=== PATIENT | male | born 1950 | race Caucasian/White ===

== ENCOUNTER 2018-06-24 11:45 | Day surgery (SDC) | payer MEDICARE, OTHER, SELFPAY ==
[2018-06-24] MEDS: PROPARACAINE 0.5% OPHTH SOL 2 DROPS EYE-OP (12:32)
[2018-06-24] MEDS: CATARACT EYE COMPOUND (10 DROPS/SYRINGE) 3 DROPS EYE-OP (12:37)
[2018-06-24 12:39] VITALS: BMI 27.0
[2018-06-24 12:46] VITALS: BP 124/71; PULSE 61; RESP 12; TEMP 36.4; O2SAT 97
--- NOTE | 2018-06-24 13:08 | PM.PREOP ---
Pre-operative Note Interval Note History & Physical reviewed/Exam performed by Physician: No Changes to H&P: No
--- NOTE | 2018-06-24 13:08 | PM.OP.1 ---
Operative Date/Time/Diagnoses Pre-op diagnosis: Nuclear cataract right eye Procedure & Clinicians Procedure: Cataract Surgery Same procedure as scheduled: Yes Surgeon: Davey Espinoza Anesthesia Type: MAC +/- and Sedation Operative Notes Procedure in detail: Patient brought to the operating suite. Tetracaine drops placed in the right eye. Marking instrument was used to amrik the vertical and horizontal meridian. Patient was prepped and draped in sterile manner. Wire lid speculum was placed in the eye. Marking instrument was used to amrik the 50 degree meridian Betadine drops were placed on the eye. This was irrigated. Lidocaine jelly was placed on the eye. A paracentesis port was created with a side-port blade. 0.1 mL 1% preservative free lidocaine was injected into the anterior chamber. The anterior chamber was deepened with viscoelastic. 2.6 mm keratome was used to create a temporal clear corneal incision. Cystotome and Utrata forceps were used to create continuous tear capsulorrhexis. Balanced salt solution was used to hydro dissect the nucleus. The phacoemulsification handpiece was inserted and the nucleus was removed using the stop and chop technique. The irrigation aspiration handpiece was inserted and the remaining cortex was removed. Anterior chamber was deepened with viscoelastic. An Llanos [id number] intraocular lens with a power of 21.0 was injected into the capsular bag. Irrigation aspiration handpiece was inserted and the remaining viscoelastic was removed. The lens was rotated to the 50 degree meridian. Incision was hydrated with balanced salt solution and found to be leak free with pressure with Weck-Dona sponges. 0.1 mL Vigamox injected anterior chamber. 0.3 mL Kenalog 10 mg was injected subconjunctivally. Lid speculum was removed. The patient left the operating room in excellent condition. Complications: none Condition: stable Disposition: same day surgery
[2018-06-24] MEDS: MOXIFLOXACIN OPHTH DROPS 3 ML BOTTLE 2 DROPS INJ (13:22)
[2018-06-24] MEDS: PHENYLEPHRINE/LIDOCAINE VIAL (OR) 0.2 ML EYE-OP (13:22)
[2018-06-24] MEDS: TETRACAINE 0.5% OPHTH DROPS 4 ML 2 DROPS EYE-OP (13:23)
[2018-06-24] MEDS: TRIAMCINOLONE 50 MG/5 ML VIAL INJ (13:23)
[2018-06-24] MEDS: CHONDROIDTIN/SOD HYALURONATE 1.05 ML SYRINGE INTRAOCULA (13:23)
[2018-06-24] MEDS: LIDOCAINE JELLY 2% 5 ML 1 APPLIC TOP (13:23)
[2018-06-24] MEDS: BALANCED SALT IRRIG SOLN NO.2 500 ML, EPINEPHrine 1 MG IRR (13:24)
[2018-06-24 13:30] VITALS: BP 122/72; PULSE 65; RESP 12; TEMP 36.4; O2SAT 99
== END 2018-06-24 13:44 | disposition home or self-care (01) ==
LOC: OR 11:48
PROVIDERS: Family Provider Family Medicine; PCP Family Medicine; Visit Provider Ophthalmology
DX: H25.11 Age-related nuclear cataract, right eye (principal); I10 Essential (primary) hypertension; E78.5 Hyperlipidemia, unspecified
CPT/HCPCS: J0171; J2250; J3010; J3301; V2787

== ENCOUNTER 2018-07-08 07:49 | Day surgery (SDC) | payer MEDICARE, OTHER, SELFPAY ==
[2018-07-08 08:08] VITALS: BP 128/77; PULSE 74; RESP 16; TEMP 36.7; O2SAT 96; BMI 28.0
[2018-07-08] MEDS: PROPARACAINE 0.5% OPHTH SOL 2 DROPS EYE-OP (08:22)
[2018-07-08] MEDS: CATARACT EYE COMPOUND (10 DROPS/SYRINGE) 3 DROPS EYE-OP (08:25)
--- NOTE | 2018-07-08 09:35 | PM.PREOP ---
Pre-operative Note Interval Note History & Physical reviewed/Exam performed by Physician: No Changes to H&P: No
--- NOTE | 2018-07-08 09:36 | PM.OP.1 ---
Operative Date/Time/Diagnoses Pre-op diagnosis: Nuclear Cataract Left eye Post-op diagnosis: same Procedure & Clinicians Surgeon: Davey Espinoza Anesthesia Type: MAC +/- and Sedation Operative Notes Procedure in detail: Patient brought to the operating suite. Tetracaine drops placed in the left eye. Marking instrument was used to amrik the vertical and horizontal meridian. Patient was prepped and draped in sterile manner. Wire lid speculum was placed in the eye. Marking instrument was used to amrik the 120 degree meridian. Betadine drops were placed on the eye. This was irrigated. Lidocaine jelly was placed on the eye. A paracentesis port was created with a side-port blade. 0.1 mL 1% preservative free lidocaine was injected into the anterior chamber. The anterior chamber was deepened with viscoelastic. 2.6 mm keratome was used to create a temporal clear corneal incision. Cystotome and Utrata forceps were used to create continuous tear capsulorrhexis. Balanced salt solution was used to hydro dissect the nucleus. The phacoemulsification handpiece was inserted and the nucleus was removed using the stop and chop technique. The irrigation aspiration handpiece was inserted and the remaining cortex was removed. Anterior chamber was deepened with viscoelastic. An Llanos [id number] intraocular lens with a power of 21.5 was injected into the capsular bag. Irrigation aspiration handpiece was inserted and the remaining viscoelastic was removed. The lens was rotated to the 120 degree meridian. Incision was hydrated with balanced salt solution and found to be leak free with pressure with Weck-Dona sponges. 0.1 mL Vigamox injected anterior chamber. 0.3 mL Kenalog 10 mg was injected subconjunctivally. Lid speculum was removed. The patient left the operating room in excellent condition. Complications: none Condition: stable Disposition: same day surgery
--- NOTE | 2018-07-08 09:37 | SUR.OPER ---
Supine on eye stretcher, head on extension cradle secured with tape. Arms tucked at sides with blanket. Pillow under knees.
[2018-07-08] MEDS: PHENYLEPHRINE/LIDOCAINE VIAL (OR) 0.2 ML EYE-OP (09:47)
[2018-07-08] MEDS: CHONDROIDTIN/SOD HYALURONATE 1.05 ML SYRINGE INTRAOCULA (09:48)
[2018-07-08] MEDS: MOXIFLOXACIN OPHTH DROPS 3 ML BOTTLE 2 DROPS INJ (09:48)
[2018-07-08] MEDS: TRIAMCINOLONE 50 MG/5 ML VIAL INJ (09:48)
[2018-07-08] MEDS: LIDOCAINE JELLY 2% 5 ML 1 APPLIC TOP (09:49)
[2018-07-08] MEDS: BALANCED SALT IRRIG SOLN NO.2 500 ML, EPINEPHrine 1 MG IRR (09:49)
[2018-07-08] MEDS: TETRACAINE 0.5% OPHTH DROPS 4 ML 2 DROPS EYE-OP (09:50)
[2018-07-08 10:05] VITALS: BP 115/67; PULSE 62; RESP 18; TEMP 36.6; O2SAT 98
== END 2018-07-08 10:15 ==
LOC: OR 07:50
PROVIDERS: Family Provider Family Medicine; PCP Family Medicine; Visit Provider Ophthalmology
DX: H25.12 Age-related nuclear cataract, left eye (principal); I10 Essential (primary) hypertension; E78.5 Hyperlipidemia, unspecified
CPT/HCPCS: J0171; J2250; J3010; J3301; V2787

== ENCOUNTER → 2018-11-26 15:55 | Outpatient (CLI) | payer MEDICARE, OTHER, SELFPAY ==
--- NOTE | 2018-11-26 | DI.RAD.S_ITS ---
PROCEDURE: XR HIP W PEL IF DONE LT 2V INDICATIONS: LEFT HIP PAIN TECHNIQUE: AP pelvis with lateral view(s) of the left hip(s). COMPARISON: None. FINDINGS: Bones: Left worse than right bilateral hip joint osteoarthritis is seen with superior joint space narrowing and subchondral sclerosis. No fractures or dislocations. No evidence of avascular necrosis the femoral head. Pelvic ring appears intact. No suspicious bony lesions. Soft tissues: The visualized bowel gas pattern is normal. No suspicious soft tissue calcifications. IMPRESSION: Left worse than right bilateral hip joint osteoarthritis. Dictated by: Jaison Gutierrez M.D. on 11/26/2018 at 16:40 Approved by: Jaison Gutierrez M.D. on 11/26/2018 at 16:40
== END ==
PROVIDERS: Family Provider Family Medicine; PCP Family Medicine; Visit Provider Family Medicine
DX: M25.552 Pain in left hip (principal); M16.0 Bilateral primary osteoarthritis of hip
CPT/HCPCS: 73502

== ENCOUNTER 2019-03-14 13:23 | Emergency (ER) | payer MEDICARE, OTHER, SELFPAY ==
[2019-03-14] VITALS (13 sets, daily range): BP systolic 105–139; BP diastolic 65–81; PULSE 57–72; RESP 12–19; TEMP 37.1; O2SAT 95–100; BMI 28.3
--- NOTE | 2019-03-14 13:36 | DI.RAD.S_ITS ---
PROCEDURE: XR CHEST 1V INDICATIONS: chest pain TECHNIQUE: One view of the chest was acquired. COMPARISON: [facility], , CHEST 2 VIEW, 11/16/2008, 11:16. FINDINGS: Surgical changes and devices: Postoperative changes of the left shoulder compatible with prior left shoulder arthroplasty. Lungs and pleura: Prominent interstitial markings within the left hilar region are evident, which have developed in the interim. There is no large effusion, large area of consolidation or definite pneumothorax. Mediastinum: Mediastinal contours appear normal. Heart size is normal. Bones and chest wall: No suspicious bony lesions. Overlying soft tissues appear unremarkable. IMPRESSION: Prominent left hilar interstitial markings may represent chronic interstitial changes, atelectasis, or atypical pneumonia. Please correlate clinically. Dictated by: Mustapha Crow M.D. on 03/14/2019 at 13:04 Approved by: Mustapha Crow M.D. on 03/14/2019 at 13:05
--- NOTE | 2019-03-14 13:44 | ED_ITS ---
HPI - Chest Pain General Chief Complaint: Chest Pain Stated Complaint: chest pain Time Seen by Provider: 03/14/19 13:26 Source: patient Mode of arrival: Ambulatory Limitations: no limitations History of Present Illness HPI narrative: Patient is a 68-year-old male who presents with chest pain. He said he was cleaning the stove after boiled coffee no significant chemicals he started getting a little dizzy lightheaded and noticed some pressure in the center wrist chest. It is improving however it has not gone it is not radiating. He denies any passing out. He has no weakness he denies any nausea diaphoresis. Pain is not worse with exertion. MD complaint: chest pain Onset (ago): hour(s) (1) Duration: constant Pain location: substernal Severity: mild Quality: heaviness Pain radiation: none Relieving factors: nothing Related Data Home Medications Medication Instructions Recorded Confirmed aspirin 81 mg PO DAILY 06/24/18 07/08/18 atenolol 25 mg PO DAILY 06/24/18 07/08/18 atorvastatin [Lipitor] 10 mg PO DAILY 06/24/18 07/08/18 diclofenac sodium [Voltaren-XR] 50 mg PO BID 06/24/18 07/08/18 esomeprazole magnesium [Nexium] 40 mg PO DAILY 06/24/18 07/08/18 felodipine 5 mg PO DAILY PRN 06/24/18 07/08/18 Allergies Allergy/AdvReac Type Severity Reaction Status Date / Time Penicillins Allergy Mild Hives Verified 03/14/19 13:35 Review of Systems Review of Systems Narrative: GENERAL: Denies chills, fatigue, malaise, fever, sweats, travel HEENT: Denies sinus pain, ear pain, sore throat, difficulty swallowing, neck pain RESPIRATORY: Denies dyspnea, cough, wheezing, hemoptysis, sputum. CARDIOVASCULAR: See HPI GASTROINTESTINAL: Denies nausea, vomiting, abdominal pain, diarrhea, constipation, melena. : Denies dysuria, frequency, incontinence, hematuria, urinary retention, flank pain. MUSCULOSKELETAL: Denies weakness, joint pain, or bony pain SKIN: No rash, no erythema, no pruritus NEUROLOGIC: Denies weakness, dizziness, headache, numbness, change in speech, confusion PSYCHIATRIC: No concerning psychosocial issues. 12 point review of systems is negative except for those stated above and HPI [facility] Medical History Hyperlipidemia (Acute) Hypertension (Acute) Social History household members: spouse Smoking Status: Never smoker Social History household members: spouse Smoking Status: Never smoker Exam Initial Vital Signs Initial Vital Signs: Vital Signs Temperature 98.8 F 03/14/19 13:32 Pulse Rate 70 03/14/19 13:32 Respiratory Rate 12 03/14/19 13:32 Blood Pressure 139/81 03/14/19 13:32 Pulse Oximetry 99 03/14/19 13:32 GENERAL: Well-appearing, well-nourished and in no acute distress. HEENT: Head atraumatic,EOMI, pupils reactive, face symmetric, moist mucous mem branes CARDIOVASCULAR: Regular rate and rhythm without murmurs, rubs or gallops. RESPIRATORY: Breath sounds equal bilaterally, no wheezes rales or rhonchi. ABDOMEN: Soft, nontender. Normoactive bowel sounds all 4 quadrants. No guarding or rebound. EXTREMITIES: Normal range of motion, no clubbing or edema. Neurovascularly intact NEUROLOGICAL: Alert and oriented x4.Normal gait and speech. Cranial nerves II through XII grossly intact. SKIN: Warm, dry, no laceration, no petechiae, no rashes or lesions. Scores HEART Score Heart Score history: Slightly Suspicious Heart Score EKG: Normal Heart Score Age: 45-64 years old Heart Score risk factors: 1-2 risk factors Heart Score troponin: < or = to normal limit Heart Score Total: 2 Course Orders Ordered: ED Orders 03/14/19 13:30 Complete Blood Count AUTO DIFF Stat Comprehensive Metabolic Panel Stat Lipase Stat Partial Thromboplastin Time Stat Prothrombin Time INR Stat Troponin & CK Cardiac Panel Stat 03/14/19 13:36 XR chest 1V Stat EKG-12 Lead Stat 03/14/19 13:39 B Type Natriuretic Peptide Stat EKG-12 Lead Stat 03/14/19 16:30 Troponin I Stat Discontinued Medications Sodium Chloride (Normal Saline 0.9%) 1,000 mls @ 1,000 mls/hr IV CONT JANI Last Infusion: 03/14/19 16:21 Dose: 0 mls/hr Documented by: Admin: 03/14/19 13:46 Dose: 1,000 mls/hr Documented by: CAROLINA Nitroglycerin (Nitrostat) 0.4 mg SL [id number] PRN PRN Reason: Chest Pain Last Admin: 03/14/19 14:01 Dose: 0.4 mg Documented by: Admin: 03/14/19 13:56 Dose: 0.4 mg Documented by: Admin: 03/14/19 13:46 Dose: 0.4 mg Documented by: CAROLINA Vital Signs Vital signs: Vital Signs - 8 hr 03/14/19 13:32 03/14/19 13:46 03/14/19 13:55 Temperature 98.8 F Pulse Rate 70 63 71 Respiratory Rate 12 12 Blood Pressure 139/81 139/81 Blood Pressure [Left Arm] 130/71 Pulse Oximetry 99 97 03/14/19 13:56 03/14/19 14:00 03/14/19 14:01 Temperature Pulse Rate 71 62 71 Respiratory Rate 15 Blood Pressure 111/68 111/68 Blood Pressure [Left Arm] 109/67 Pulse Oximetry 95 03/14/19 14:04 03/14/19 15:00 03/14/19 15:30 Temperature Pulse Rate 72 63 64 Respiratory Rate 15 13 Blood Pressure Blood Pressure [Left Arm] 108/68 108/65 105/72 Pulse Oximetry 98 100 03/14/19 16:00 03/14/19 16:30 03/14/19 17:00 Temperature Pulse Rate 57 L 59 L 57 L Respiratory Rate 16 19 15 Blood Pressure Blood Pressure [Left Arm] 115/72 120/73 126/71 Pulse Oximetry 99 100 100 03/14/19 17:49 Temperature Pulse Rate 61 Respiratory Rate 15 Blood Pressure 133/79 Blood Pressure [Left Arm] Pulse Oximetry 100 MDM - Chest Pain Lab Data Attestation: I reviewed the patient's lab results. Result diagrams: 03/14/19 13:30 03/14/19 13:30 Labs: Lab Results 03/14/19 03/14/19 03/14/19 Range/Units 13:30 13:30 13:30 WBC 6.8 (4.5-11.0) X10^3/uL RBC 3.95 L (4.5-5.9) X10^6/uL Hgb 13.7 (13.5-17.5) g/dL Hct 40.2 L (41-53) % MCV 101.9 H (80-100) fL MCH 34.7 H (26-34) PG MCHC 34.0 (30-36) % RDW 14.8 (11.6-14.8) % Plt Count 212 (150-400) X10^3/uL Neut % (Auto) 70.0 (50-75) % Lymph % (Auto) 16.8 L (25-40) % [place] % (Auto) 10.5 (3-14) % Eos % (Auto) 1.5 L (2-4) % Baso % (Auto) 1.2 (0-2) % Neut # (Auto) 4800 (7959-1543) /uL Lymph # (Auto) 1100 (8652-1020) /uL [place] # (Auto) 700 (0-900) /uL Eos # (Auto) 100 (0-450) /uL Baso # (Auto) 100 (0-100) /uL PT 10.3 (10.1-12.7) SECONDS INR 0.9 (0.9-1.3) APTT 32 (26.4-36.2) SECONDS Sodium 138 (137-145) mmol/L Potassium 4.6 (3.4-5.1) mmol/L Chloride 100 (98-107) mmol/L Carbon Dioxide 28 (22-32) mmol/L BUN 15 (9-20) mg/dL Creatinine 1.10 (0.66-1.25) mg/dL Estimated GFR > 60.0 (>60) mL/min BUN/Creatinine Ratio 13.6 (6-22) Glucose 96 (80-110) mg/dL Calcium 9.3 (8.4-10.2) mg/dL Total Bilirubin 0.7 (0.2-1.3) mg/dL AST 30 (17-59) IU/L ALT 26 (21-72) IU/L Alkaline Phosphatase 69 (38-126) U/L Total Creatine Kinase 78 (55-170) U/L CK-MB (CK-2) TNP CK-MB (CK-2) Rel Index TNP Troponin I < 0.012 (0.01-0.034) ng/mL B-Natriuretic Peptide (<100) Total Protein 7.5 (6.3-8.2) g/dL Albumin 4.4 (3.5-5.0) g/dL Globulin 3.1 (1.7-4.1) g/dL Albumin/Globulin Ratio 1.4 (1.0-2.8) Lipase 98 (23-300) U/L 03/14/19 03/14/19 Range/Units 13:39 16:30 WBC (4.5-11.0) X10^3/uL RBC (4.5-5.9) X10^6/uL Hgb (13.5-17.5) g/dL Hct (41-53) % MCV (80-100) fL MCH (26-34) PG MCHC (30-36) % RDW (11.6-14.8) % Plt Count (150-400) X10^3/uL Neut % (Auto) (50-75) % Lymph % (Auto) (25-40) % [place] % (Auto) (3-14) % Eos % (Auto) (2-4) % Baso % (Auto) (0-2) % Neut # (Auto) (6032-7888) /uL Lymph # (Auto) (9561-7481) /uL [place] # (Auto) (0-900) /uL Eos # (Auto) (0-450) /uL Baso # (Auto) (0-100) /uL PT (10.1-12.7) SECONDS INR (0.9-1.3) APTT (26.4-36.2) SECONDS Sodium (137-145) mmol/L Potassium (3.4-5.1) mmol/L Chloride (98-107) mmol/L Carbon Dioxide (22-32) mmol/L BUN (9-20) mg/dL Creatinine (0.66-1.25) mg/dL Estimated GFR (>60) mL/min BUN/Creatinine Ratio (6-22) Glucose (80-110) mg/dL Calcium (8.4-10.2) mg/dL Total Bilirubin (0.2-1.3) mg/dL AST (17-59) IU/L ALT (21-72) IU/L Alkaline Phosphatase (38-126) U/L Total Creatine Kinase (55-170) U/L CK-MB (CK-2) CK-MB (CK-2) Rel Index Troponin I < 0.012 (0.01-0.034) ng/mL B-Natriuretic Peptide < 100 (<100) Total Protein (6.3-8.2) g/dL Albumin (3.5-5.0) g/dL Globulin (1.7-4.1) g/dL Albumin/Globulin Ratio (1.0-2.8) Lipase (23-300) U/L Imaging Data Chest x-ray: Radiologist's impression: PROCEDURE: XR CHEST 1V INDICATIONS: chest pain TECHNIQUE: One view of the chest was acquired. COMPARISON: [facility], CHEST 2 VIEW, 11/16/2008, 11:16. FINDINGS: Surgical changes and devices: Postoperative changes of the left shoulder compatible with prior left shoulder arthroplasty. Lungs and pleura: Prominent interstitial markings within the left hilar region are evident, which have developed in the interim. There is no large effusion, large area of consolidation or definite pneumothorax. Mediastinum: Mediastinal contours appear normal. Heart size is normal. Bones and chest wall: No suspicious bony lesions. Overlying soft tissues ap pear unremarkable. IMPRESSION: Prominent left hilar interstitial markings may represent chronic interstitial changes, atelectasis, or atypical pneumonia. Please correlate clinically. Dictated by: Mustapha Crow M.D. on 03/14/2019 at 13:04 ECG Data Attestation: I personally reviewed and interpreted this ECG as follows: Prior ECG tracings: not available for review Interpretation: Normal sinus rhythm rate 63 p.r. interval 159 QRS of [address] changes no T-wave inversions slightly peaked T-waves in V2 but no other leads. EKG 2. Is sinus rhythm rate 72 changes from prior no ST changes no T-wave inversion MDM Narrative Medical decision making narrative: Discussed at length with patient need for follow-up and further cardiac evaluation. However he is low risk heart score 2-troponins. He did require 3 nitroglycerin to become completely chest pain- free however after that chest pain never reoccurred in the ED. I discussed all findings with the patient , Education has been performed regarding treatment plan, diagnosis, warning signs and symptoms and all concerns have been addressed. Verbally agree with and understood all of the above. Discharge Plan Departure Patient Disposition: Home Clinical Impression: Atypical chest pain Discharge Date/Time: 03/14/19 17:49 Instructions: DI for Atypical Chest Pain Activity Restrictions/Additional Instructions: *You have been diagnosed with atypical chest pain *What to do: At this time blood work and EKG are reassuring. I still recommend that the further cardiac workup with your PCP. *Continue to take medications as directed Aspirin 81 mg once a day *Follow up with your primary care provider in 2-3 days *Return to ER if you should have increasing chest pain, shortness of breath, shortness of breath exertion or any new, worsening or concerning symptoms Prescriptions: No Action felodipine 2.5 mg Tablet Extended Release 24 Hr 5 mg PO DAILY PRN (Reason: cold feet) RF: 0 diclofenac sodium [Voltaren-XR] 100 mg Tablet Extended Release 24 Hr 50 mg PO BID RF: 0 atenolol 25 mg Tablet 25 mg PO DAILY RF: 0 esomeprazole magnesium [Nexium] 20 mg Capsule,Delayed Release(Dr/Ec) 40 mg PO DAILY RF: 0 atorvastatin [Lipitor] 10 mg Tablet 10 mg PO DAILY RF: 0 aspirin 81 mg Tablet,Delayed Release (Dr/Ec) 81 mg PO DAILY RF: 0 Referrals: Anuel Michelle MD [Primary Care Provider] -
[2019-03-14 13:45] LABS: Add Manual Diff / Slide Review NO; Basophils Absolute Auto 100 /uL (0-100); Basophils Percent Auto 1.2 % (0-2); Eosinophils Absolute Auto 100 /uL (0-450); Eosinophils Percent Auto 1.5 % (2-4); Hematocrit 40.2 % (41-53); Hemoglobin 13.7 g/dL (13.5-17.5); Lymphocytes Absolute Auto 1100 /uL (1100-4500); Lymphocytes Percent Auto 16.8 % (25-40); Mean Corpuscular Hemoglobin 34.7 PG (26-34); Mean Corpuscular Volume 101.9 fL (80-100); Monocytes Absolute Auto 700 /uL (0-900); Monocytes Percent Auto 10.5 % (3-14); Neutrophils Absolute Auto 4800 /uL (1500-7000); Platelet Count 212 X10^3/uL (150-400); Red Blood Cell Count 3.95 X10^6/uL (4.5-5.9); Red Cell Distribution Width 14.8 % (11.6-14.8); White Blood Cell Count 6.8 X10^3/uL (4.5-11.0)
[2019-03-14] MEDS: SODIUM CHLORIDE 0.9% 1,000 ML 1000 ML IV (13:46)
[2019-03-14] MEDS: NITROGLYCERIN 0.4 MG SL TAB SL ×3 (13:46→14:01)
[2019-03-14 13:55] LABS: INR 0.9 (0.9-1.3); Prothrombin Time 10.3 SECONDS (10.1-12.7)
[2019-03-14 13:58] LABS: PTT Partial Thromboplastin Tim 32 SECONDS (26.4-36.2)
[2019-03-14 14:07] LABS: B Type Natriuretic Peptide < 100 (<100)
[2019-03-14 14:10] LABS: Alanine Aminotransferase 26 IU/L (21-72); Albumin 4.4 g/dL (3.5-5.0); Albumin Globulin Ratio 1.4 (1.0-2.8); Alkaline Phosphatase 69 U/L (38-126); Aspartate Aminotransferase 30 IU/L (17-59); BUN Creatinine Ratio 13.6 (6-22); Bilirubin Total 0.7 mg/dL (0.2-1.3); Blood Urea Nitrogen 15 mg/dL (9-20); Calcium 9.3 mg/dL (8.4-10.2); Carbon Dioxide 28 mmol/L (22-32); Chloride 100 mmol/L (98-107); Creatine Kinase 78 U/L (55-170); Estimated Glomerular Filt Rate > 60.0 mL/min (>60); Globulin 3.1 g/dL (1.7-4.1); Glucose 96 mg/dL (80-110); HEMOLYSIS < 15 (0-50); Lipase 98 U/L (23-300); Potassium 4.6 mmol/L (3.4-5.1); Sodium 138 mmol/L (137-145); Total Protein 7.5 g/dL (6.3-8.2)
[2019-03-14 14:21] LABS: Troponin I < 0.012 ng/mL (0.01-0.034)
[2019-03-14 17:35] LABS: Troponin I < 0.012 ng/mL (0.01-0.034)
== END 2019-03-14 17:49 | disposition home or self-care (01) ==
PROVIDERS: Emergency Provider Emergency Medicine; PCP Family Medicine
DX: R07.89 Other chest pain (principal)
CPT/HCPCS: 36415; 71045; 80053; 82550; 83690; 83880; 84484; 85025; 85610; 85730; 93005; 96360; 96361; 99284; 99285

== ENCOUNTER → 2019-04-17 07:33 | Outpatient (CLI) | payer MEDICARE, OTHER, SELFPAY ==
--- NOTE | 2019-04-17 08:52 | PM.TREADMILL ---
Cardiac Stress Test Report Referral & Results Date Patient Seen: 04/17/19 Time Patient Seen: 08:30 Requesting provider: Anuel Michelle Indication: Chest pain Rest ECG: NSR Procedure Note: Today following both written and verbal informed consent, the patient was exercised according to a standard Isauro protocol. The patient exercised for a total of 8 minutes 36 seconds achieving a maximum heart rate of 162. Patient's maximum systolic blood pressure was 180. This was an estimated 10.1 METs. No signs or symptoms of angina. No change in rhythm. Audible wheezing but no dyspnea. Occasional PVCs. KIESHA-10% on the active scale. Marginal ST deviations in multiple leads that resolved rapidly with rest. Impression: Low probability for ischemia. Oropeza treadmill score of 6 indicates a 5-year survival of 97%. Please note: Actual ECG tracings can be found in the PACS system.
== END ==
PROVIDERS: PCP Family Medicine; Visit Provider Family Medicine
DX: R07.89 Other chest pain (principal)
CPT/HCPCS: 93016; 93017; 93018

== ENCOUNTER → 2019-07-07 10:19 | Outpatient (CLI) | payer MEDICARE, OTHER, SELFPAY ==
--- NOTE | 2019-07-07 | DI.US.S_ITS ---
PROCEDURE: US ABD AORTA ANEURYSM SCREEN INDICATIONS: SCREENING FOR CARDIOVASCULAR DISORDERS TECHNIQUE: Real time scanning was performed of the aorta and iliac arteries, with image documentation. COMPARISON: None. FINDINGS: Aorta: Proximal aortic diameter measures 2.6 cm. Mid-aorta measures 2.1 cm. Distal aortic diameter is 1.7 cm. Iliac arteries: Right common iliac artery measures 1.4 cm. Left common iliac artery measures 1.3 cm. IMPRESSION: Mild aortic ectasia. 5 year sonographic surveillance recommended. Dictated by: Blossom Vallejo M.D. on 07/07/2019 at 14:08 Approved by: Blossom Vallejo M.D. on 07/07/2019 at 14:29
== END ==
PROVIDERS: PCP Family Medicine; Visit Provider Family Medicine
DX: Z13.6 Encounter for screening for cardiovascular disorders (principal); I77.811 Abdominal aortic ectasia
CPT/HCPCS: 76706

== ENCOUNTER → 2022-10-10 08:03 | Outpatient (CLI) | payer MEDICARE, OTHER, SELFPAY ==
[2022-10-10 09:35] LABS: Add Manual Diff / Slide Review NO; Basophils Absolute Auto 100 /uL (0-100); Basophils Percent Auto 1.2 % (0-2); Eosinophils Absolute Auto 200 /uL (0-450); Eosinophils Percent Auto 2.8 % (2-4); Hematocrit 39.2 % (41-53); Hemoglobin 13.5 g/dL (13.5-17.5); Lymphocytes Absolute Auto 1200 /uL (1100-4500); Mean Corpuscular HGB Conc 34.5 % (30-36); Mean Corpuscular Hemoglobin 35.9 PG (26-34); Mean Corpuscular Volume 103.9 fL (80-100); Monocytes Absolute Auto 600 /uL (0-900); Monocytes Percent Auto 10.7 % (3-14); Neutrophils Absolute Auto 4000 /uL (1500-7000); Neutrophils Percent Auto 66.3 % (50-75); Platelet Count 214 X10^3/uL (150-400); Red Blood Cell Count 3.78 X10^6/uL (4.5-5.9); Red Cell Distribution Width 14.3 % (11.6-14.8); White Blood Cell Count 6.1 X10^3/uL (4.5-11.0)
[2022-10-10 09:50] LABS: Alanine Aminotransferase 26 IU/L (<50); Albumin 4.2 g/dL (3.5-5.0); Albumin Globulin Ratio 1.4 (1.0-2.8); Alkaline Phosphatase 67 U/L (38-126); Aspartate Aminotransferase 35 IU/L (17-59); BUN Creatinine Ratio 15.5 (6-22); Bilirubin Total 0.7 mg/dL (0.2-1.3); Blood Urea Nitrogen 18 mg/dL (9-20); Carbon Dioxide 28 mmol/L (22-32); Chloride 102 mmol/L (98-107); Cholesterol 139 mg/dL (140-199); Estimated Glomerular Filt Rate > 60 mL/min (>60); Globulin 2.9 g/dL (1.7-4.1); Glucose 84 mg/dL (80-110); HDL Cholesterol 52 mg/dL (40-60); HEMOLYSIS < 15 (0-50); LDL Cholesterol Calculated 59 mg/dL (<100); Potassium 4.4 mmol/L (3.4-5.1); Sodium 139 mmol/L (137-145); Total Protein 7.1 g/dL (6.3-8.2); Triglycerides 141 mg/dL (35-150)
== END ==
PROVIDERS: PCP Family Medicine; Referring Provider Dermatology; Visit Provider Dermatology
DX: L70.0 Acne vulgaris (principal)
CPT/HCPCS: 36415; 80053; 80061; 85025

== ENCOUNTER → 2023-08-22 10:33 | Outpatient (CLI) | payer MEDICARE, OTHER, SELFPAY ==
--- NOTE | 2023-08-22 10:36 | DI.RAD.S_ITS ---
PROCEDURE: XR CHEST 2V INDICATIONS: COUGH TECHNIQUE: 2 views of the chest were acquired. COMPARISON: [facility], , CHEST 2 VIEW, 11/16/2008, 11:16. [facility], , XR CHEST 1V, 03/14/2019, 13:55. FINDINGS: Surgical changes and devices: Bilateral shoulder arthroplasties. Lungs and pleura: Diffuse coarsened pulmonary marking, more conspicuous or increased compared to 2019. No silhouetting. No pleural effusions or pneumothorax. Mediastinum: Mediastinal contours are unchanged. Heart size is within normal limits. Bones and chest wall: No suspicious bony abnormalities. Soft tissues appear unremarkable. IMPRESSION: Diffuse coarsened pulmonary markings appear more prominent or increased compared to 2019. This could be the sequelae of infectious/inflammatory etiology or interstitial lung disease. Recommend further evaluation with high-resolution chest CT. Dictated by: Gt Dyer M.D. on 08/22/2023 at 16:24 Approved by: Gt Dyer M.D. on 08/22/2023 at 16:33
== END ==
PROVIDERS: PCP Family Medicine; Referring Provider Registered Nurse; Visit Provider Registered Nurse
DX: R05.2 Subacute cough (principal)
CPT/HCPCS: 71046

== ENCOUNTER → 2023-08-23 14:41 | Outpatient (CLI) | payer MEDICARE, OTHER, SELFPAY ==
--- NOTE | 2023-08-23 14:42 | DI.CT.S_ITS ---
PROCEDURE: CT CHEST HIGH RESOLUTION INDICATIONS: ABNORMAL CHEST XR TECHNIQUE: Noncontrast 1.0 and 5.0 mm thick contiguous axial sections from the pulmonary apex to the posterior costophrenic angles, with 7 mm thick coronal and sagittal MIP reformats. 1 mm thick dynamic expiratory images acquired through the upper, mid, and lower lungs. 1.0 mm thick axial sections acquired from the maged to the posterior costophrenic angles in the prone end-inspiration position. For radiation dose reduction, the following was used: automated exposure control, adjustment of mA and/or kV according to patient size. COMPARISON: [facility], KHLOE, XR CHEST 1V, 03/14/2019, 13:55. [facility], RG, CT KUB, 07/09/2001, 15:32. FINDINGS: Image quality: Diagnostic. Lower Neck: No enlarged lymph nodes. Thyroid: No thyroid nodules which require sonographic follow up, per consensus guidelines. Axillae: No enlarged lymph nodes. Chest Wall: Unremarkable. Bones: Bilateral shoulder arthroplasties. No aggressive appearing osseous lesion. Lungs and Pleura: No pneumothorax or pleural effusions. Interlobular septal thickening. Mild bronchiectasis. Central airways are clear. A few areas of honeycombing. Heart: Heart size is normal. Three-vessel coronary artery calcifications. No pericardial effusion. Thoracic Vessels: The aorta and pulmonary arteries demonstrate normal size. Mediastinum and Silvia: No enlarged lymph nodes. Esophagus: No wall thickening. No hiatal hernia. Upper Abdomen: Visualized upper abdomen solid organs and bowel loops appear normal. IMPRESSION: Peripheral reticular thickening and mild traction bronchiectasis and honeycombing. UIP pattern interstitial lung disease. No acute ground-glass opacity. Three-vessel coronary artery calcifications. Dictated by: Gt Dyer M.D. on 08/23/2023 at 16:01 Approved by: Gt Dyer M.D. on 08/23/2023 at 16:10
== END ==
PROVIDERS: PCP Family Medicine; Referring Provider Registered Nurse; Visit Provider Registered Nurse
DX: J84.9 Interstitial pulmonary disease, unspecified (principal); J47.9 Bronchiectasis, uncomplicated; I25.10 Atherosclerotic heart disease of native coronary artery without angina pectoris; R93.89 Abnormal findings on diagnostic imaging of other specified body structures; Z96.612 Presence of left artificial shoulder joint; Z96.611 Presence of right artificial shoulder joint
CPT/HCPCS: 71250

== ENCOUNTER → 2024-06-26 09:03 | Outpatient (CLI) | payer MEDICARE, OTHER, SELFPAY ==
--- NOTE | 2024-06-26 09:05 | DI.US.S_ITS ---
PROCEDURE: US RETRO PERITONEAL LIMITED INDICATIONS: ECTASIS AORTA TECHNIQUE: Real time scanning was performed of the aorta and iliac arteries, with image documentation. COMPARISON: None. FINDINGS: Aorta: Proximal aortic diameter measures 3.3 x 3.2 cm, previously 2.6. Mid-aorta measures 2.3 x 2.1 cm. Distal aortic diameter is 1.7 x 1.6 cm. Iliac arteries: Right common iliac artery measures 1.3 cm. Left common iliac artery measures 1.2 cm. IMPRESSION: Proximal abdominal aortic aneurysm appears larger than prior imaging measuring up to 3.3 cm. Follow-up in 3 years or sooner recommended. Dictated by: Alex Bunch M.D. on 06/26/2024 at 14:34 Approved by: Alex Bunch M.D. on 06/26/2024 at 14:35
== END ==
PROVIDERS: PCP Family Medicine; Referring Provider Family Medicine; Visit Provider Family Medicine
DX: I71.40 Abdominal aortic aneurysm, without rupture, unspecified (principal)
CPT/HCPCS: 76775

== ENCOUNTER → 2024-11-05 10:03 | Outpatient (CLI) | payer MEDICARE, OTHER, SELFPAY ==
--- NOTE | 2024-11-05 | DI.RAD.S_ITS ---
PROCEDURE: XR KNEE RT 1TO2V INDICATIONS: KNEE PAIN TECHNIQUE: 1 views of the knee were acquired. COMPARISON: [facility], CR, XR KNEE ARTHRITIC SERIES , 10/09/2022, 8:09. FINDINGS: Bones: No fractures or dislocations. No suspicious bony lesions. Medial knee arthroplasty. Hardware is intact without hardware fracture or periprosthetic lucency to suggest loosening. Alignment is stable. Soft tissues: No joint effusion. No suspicious soft tissue calcifications. IMPRESSION: Stable appearance of medial knee arthroplasty. Dictated by: Sanjuana Sanchez M.D. on 11/05/2024 at 12:15 Approved by: Sanjuana Sanchez M.D. on 11/05/2024 at 12:16
--- NOTE | 2024-11-05 10:07 | DI.RAD.S_ITS ---
PROCEDURE: XR HIP W PEL IF DONE RT 2V INDICATIONS: RT HIP PAIN TECHNIQUE: AP pelvis with lateral view(s) of the right hip(s). COMPARISON: [facility], , XR HIP W PEL IF DONE LT 2V, 11/26/2018, 16:14. FINDINGS: Bones: No fractures or dislocations. Pelvic ring appears intact. No suspicious bony lesions. Mild degenerative narrowing of the hip joints bilaterally progressive compared to prior exam. Periarticular osteophytes are present. No erosions. Soft tissues: The visualized bowel gas pattern is normal. No suspicious soft tissue calcifications. IMPRESSION: Progressive appearance of bilateral hip arthritic change. Dictated by: Sanjuana Sanchez M.D. on 11/05/2024 at 12:16 Approved by: Sanjuana Sanchez M.D. on 11/05/2024 at 12:16
--- NOTE | 2024-11-05 10:08 | DI.RAD.S_ITS ---
PROCEDURE: XR KNEE STANDING BI INDICATIONS: RT KNEE PAIN TECHNIQUE: 3 views of the knee(s) COMPARISON: [facility], CR, XR KNEE RT [id number], 11/05/2024, 10:05. FINDINGS: Bones: No acute fractures or dislocations. Bilateral medial compartment hemiarthroplasty. Hardware is intact without hardware fracture or periprosthetic lucency to suggest loosening. Alignment is stable. There is moderate degenerative narrowing of the lateral compartment bilaterally relatively symmetric. Periarticular osteophytes are present. No erosions. Soft tissues: Mild right knee joint effusions. No suspicious soft tissue calcification. IMPRESSION: Bilateral medial destinee arthroplasties as above. Dictated by: Sanjuana Sanchez M.D. on 11/05/2024 at 12:12 Approved by: Sanjuana Sanchez M.D. on 11/05/2024 at 12:14
== END ==
PROVIDERS: PCP Family Medicine; Referring Provider Family Medicine; Visit Provider Family Medicine
DX: M25.551 Pain in right hip (principal); M25.561 Pain in right knee; G89.29 Other chronic pain; Z96.653 Presence of artificial knee joint, bilateral
CPT/HCPCS: 73502; 73560; 73565